=== PATIENT | male | born 1990 | race Caucasian/White ===

== ENCOUNTER 2019-05-24 12:25 | Emergency (ER) | payer BC ==
[2019-05-24] MEDS ORDERED: Acetaminophen/oxyCODONE 325-5 MG Tab PO ONE (12:58)
--- NOTE | 2019-05-24 14:39 | CR ---
Chest and left ribs: Frontal view of the chest was obtained as well as three views of left-sided ribs. Comparison: No previous chest or rib exam. Heart size and mediastinum are normal. Lungs are clear. Old healed bilateral clavicle fractures are incidentally noted. No discrete fracture or other left-sided rib abnormality is appreciated. Impression: 1. Nothing acute is seen on frontal chest x-ray. No acute abnormality is appreciated within the left ribs. Diagnostic code #2
--- NOTE | 2019-05-24 14:46 | EDM.PDOC ---
ED HPI GENERAL MEDICAL PROBLEM - General Chief Complaint: Chest Pain Stated Complaint: L SIDE RIB PAIN Time Seen by Provider: 05/24/19 12:52 Source of Information: Reports: Patient, RN Notes Reviewed - History of Present Illness INITIAL COMMENTS - FREE TEXT/NARRATIVE: 28 year old male fell injuring L ribs yesterday. Sever pain L chest with deep breathing, certain types of motion. No other pain or injury. He does not feel short of breath at time of exam. Left Thoracic Pain Score (Numeric/FACES): 10 - Related Data Allergies Allergy/AdvReac Type Severity Reaction Status Date / Time hydrocodone Allergy Itching Verified 05/24/19 12:39 Home Meds: Home Meds Acetaminophen/oxyCODONE [Percocet 325-5 MG] 1 each PO Q6HR PRN #14 tab 05/24/19 [Rx] Past Medical History - Past Surgical History HEENT Surgical History: Reports: Tonsillectomy Musculoskeletal Surgical History: Reports: Knee Replacement Social & Family History - Family History Family Medical History: Noncontributory - Tobacco Use Smoking Status *Q: Current Every Day Smoker Years of Tobacco use: 14 Packs/Tins Daily: 1 - Caffeine Use Caffeine Use: Reports: Coffee, Energy Drinks, Soda, Tea - Recreational Drug Use Recreational Drug Use: No ED ROS GENERAL - Review of Systems Review Of Systems: See Below Constitutional: Denies: Fever, Chills, Diaphoresis HEENT: Reports: No Symptoms Respiratory: Reports: Pleuritic Chest Pain. Denies: Shortness of Breath, Cough Cardiovascular: Reports: Chest Pain GI/Abdominal: Denies: Abdominal Pain, Nausea, Vomiting Musculoskeletal: Denies: Shoulder Pain, Arm Pain, Back Pain Skin: Reports: No Symptoms Neurological: Reports: No Symptoms ED EXAM, GENERAL - Physical Exam Exam: See Below General Appearance: Alert, Moderate Distress Eye Exam: Bilateral Eye: PERRL Ears: Normal External Exam Nose: Normal Inspection Throat/Mouth: Normal Inspection Head: Atraumatic Neck: Supple, Non-Tender Respiratory/Chest: No Respiratory Distress, Lungs Clear, Normal Breath Sounds, Other (Tender L later chest, no visible bruising or swelling) Cardiovascular: Regular Rate, Rhythm GI/Abdominal: Soft, Non-Tender Back Exam: No: CVA Tenderness (L), CVA Tenderness (R), Paraspinal Tenderness, Vertebral Tenderness Extremities: Normal Inspection, Normal Range of Motion Course - Vital Signs Last Recorded V/S: Last Vital Signs Temp 98.6 F 05/24/19 12:35 Pulse 96 05/24/19 12:35 Resp 20 05/24/19 12:35 BP 159/109 H 05/24/19 12:35 Pulse Ox 98 05/24/19 12:35 - Orders/Labs/Meds Meds: Medications Discontinued Medications Generic Name Dose Route Start Last Admin Trade Name Juan Pablo PRN Reason Stop Dose Admin Oxycodone/Acetaminophen 1 tab 05/24/19 12:58 05/24/19 13:16 Percocet 325-5 Mg PO 05/24/19 12:59 1 tab ONETIME ONE Administration - Re-Assessments/Exams Free Text/Narrative Re-Assessment/Exam: 05/30/19 09:21 CXR, ribs nl, no visible fx. Departure - Departure Time of Disposition: 14:45 Disposition: Home, Self-Care 01 Condition: Fair Clinical Impression: Chest wall pain Chest wall contusion Qualifiers: Encounter type: initial encounter Laterality: left Qualified Code(s): S20.212A - Contusion of left front wall of thorax, initial encounter - Discharge Information Prescriptions: Acetaminophen/oxyCODONE [Percocet 325-5 MG] 1 each PO Q6HR PRN #14 tab PRN Reason: Pain Instructions: Chest Wall Pain, [id number] Referrals: PCP,None [Primary Care Provider] - Forms: ED Department Discharge Additional Instructions: Avoid heavy lifting, alternate ice and heat as needed, Advil or ibuprofen as needed. you may take tylenol up to 3 times daily for addition pain relief or percocet if needed for severe pain, do not drive or work when taking percocet. Try avoid heavy lifting, follow-up with your regular medical provider in 7-10 days if discomfort not resolving as expected
== END 2019-05-24 14:55 | disposition home or self-care (01) ==
LOC: JD.ED 12:25
DX: S20.212A Contusion of left front wall of thorax, initial encounter (principal); Z88.5 Allergy status to narcotic agent; F17.210 Nicotine dependence, cigarettes, uncomplicated; W19.XXXA Unspecified fall, initial encounter
CPT/HCPCS: 71101; 99283; A9270